=== PATIENT | male | born 1970 | race Caucasian/White ===

== ENCOUNTER 2017-02-03 12:47 | Emergency (ER) | payer BC, OTHER ==
[2017-02-03] MEDS ORDERED: SODIUM CHLORIDE 0.9% 1,000 ML IV STA (12:50)
[2017-02-03] MEDS ORDERED: ceFAZolin 1,000 MG in DEXTROSE/WATER 1 50ML.BAG IVPB STA (12:52)
[2017-02-03 12:59] VITALS: PULSE 71
[2017-02-03] MEDS: fentaNYL (PF) 50 MCG/ML 2 ML AMP IVP STA ×4 (13:14→14:24)
[2017-02-03 13:18] LABS: Basophils % (A) 0 %; CH 31.8; CHCM 34.5; Eosinophils # (A) 0.1 k/uL (0-0.7); Eosinophils % (A) 0 %; HCT 32.3 % (39.0-53.0); HDW 2.43; HGB 11.6 gm/dL (13.0-17.5); Luc # (Auto) 0.15; Luc % (Auto) 1; Lymphocytes # (A) 1.6 k/uL (1.0-4.8); Lymphocytes % (A) 11 %; MCH 33.1 pg (25.0-35.0); MCHC 35.9 g/dL (31.0-37.0); MCV 92.4 fL (80.0-100.0); Mean Platelet Volume 7.9; Monocytes # (A) 0.5 k/uL (0-1.0); Monocytes % (A) 4 %; Neutrophils # (A) 11.9 k/uL (1.3-7.7); Neutrophils % (A) 83 %; RDW 12.5 % (11.5-15.5); WBC 14.3 k/uL (3.8-10.6); WBC (Perox) 14.91
[2017-02-03 13:24] LABS: VBG PH 7.39 (7.31-7.41)
[2017-02-03 13:26] LABS: INR 1.2 (<1.2)
[2017-02-03 13:27] LABS: Prothrombin Time 11.8 sec (9.0-12.0)
--- NOTE | 2017-02-03 13:33 | XR ---
EXAMINATION TYPE: XR chest 1V portable DATE OF EXAM: 02/03/2017 COMPARISON: NONE HISTORY: Trauma TECHNIQUE: Single frontal view of the chest is obtained. FINDINGS: There is no focal air space opacity, pleural effusion, or pneumothorax seen. The cardiac silhouette size is within normal limits. The osseous structures are intact. IMPRESSION: No acute cardiopulmonary process.
--- NOTE | 2017-02-03 13:34 | XR ---
EXAMINATION TYPE: XR hand complete RT DATE OF EXAM: 02/03/2017 CLINICAL HISTORY: Injury with pain. TECHNIQUE: Frontal, lateral and oblique images of the right hand are obtained. COMPARISON: None. FINDINGS: There is no acute fracture/dislocation evident in the right hand. The joint spaces in the right hand appear within normal limits. There is soft tissue laceration injury near the distal radial aspect of the distal first metacarpal in the thumb. IMPRESSION: There is no acute fracture or dislocation in the right hand. Soft tissue laceration inju ry noted.
--- NOTE | 2017-02-03 13:34 | XR ---
EXAMINATION TYPE: XR pelvis AP view DATE OF EXAM: 02/03/2017 CLINICAL HISTORY: Trauma and pain. TECHNIQUE: A single AP view of the pelvis is obtained. COMPARISON: None. FINDINGS: There is no acute fracture/dislocation evident in the pelvis given the limitation of left hip and pelvis internal rotation. The hip and sacroiliac joints appear symmetric and unremarkable. The overlying soft tissue appears unremarkable. Degenerative changes are appreciated of the lumbosacr al junction. IMPRESSION: Left hemipelvic rotation with no discrete acute fracture or dislocation in the pelvis.
--- NOTE | 2017-02-03 13:35 | XR ---
EXAMINATION TYPE: XR femur bilateral DATE OF EXAM: 02/03/2017 CLINICAL HISTORY: Trauma and hip pain. TECHNIQUE: Two views of the bilateral femurs are obtained. COMPARISON: None FINDINGS: There is no acute fracture or dislocation seen in the lateral femurs. The right and left hip and knee joints appear within normal limits. The overlying soft tissue appears unremarkable. IMPRESSION: There is no acute fracture or dislocation in either femur.
[2017-02-03 13:42] LABS: Partial Thromboplastin Time 18.7 sec (22.0-30.0)
--- NOTE | 2017-02-03 13:44 | XR ---
EXAMINATION TYPE: XR foot limited bilateral DATE OF EXAM: 02/03/2017 CLINICAL HISTORY: Injury today with pain TECHNIQUE: Frontal and lateral images of the bilateral feet are obtained. COMPARISON: None FINDINGS: Flexion in the toes makes evaluation at this level suboptimal. There is no additional acute fracture/dislocation evident in either foot. The joint spaces in the bilateral feet appear within n ormal limits. The overlying soft tissue appears unremarkable bilaterally. There is partial visualization of fracture in the right ankle at level of medial malleolus with morti se disruption, see same day bilateral tibia fibula report. IMPRESSION: There is no additional acute fracture or dislocation in either foot.
[2017-02-03 13:46] LABS: ALT 28 U/L (21-72); AST 34 U/L (17-59); Alcohol <10 mg/dL; Alkaline Phosphatase 42 U/L (38-126); Amylase 34 U/L (30-110); Anion Gap 10 mmol/L; Blood Urea Nitrogen 13 mg/dL (9-20); Calcium 7.7 mg/dL (8.4-10.2); Carbon Dioxide 18 mmol/L (22-30); Chloride 106 mmol/L (98-107); Creatine Kinase 525 U/L (55-170); Glucose 126 mg/dL (74-99); Non-African American GFR(MDRD) >60 (>60 ml/min/1.73 sqM); Potassium 3.7 mmol/L (3.5-5.1); Sodium 134 mmol/L (137-145); Total Bilirubin 0.8 mg/dL (0.2-1.3); Total Protein 5.2 g/dL (6.3-8.2)
--- NOTE | 2017-02-03 13:46 | XR ---
EXAMINATION TYPE: XR tibia fibula bilateral DATE OF EXAM: 02/03/2017 CLINICAL HISTORY: Tree fell on the patient with open tibia fracture and obvious deformity of the lowe r extremities TECHNIQUE: Two views of the right leg are obtained. COMPARISON: None. FINDINGS: There is a comminuted and impacted extensive fracture of the proximal tibia involving the m etaphysis and proximal diaphysis with extension superiorly into the joint space. There is approximate ly 1 cm lateral displacement of the distal fracture fragment of the tibia. Overlying soft tissue swel ling, subcutaneous emphysema, and medial laceration are noted. There is a primarily transversely oriented fracture of the distal fibular diaphysis. With the distal fracture fragment displaced medially approximately 6 mm. Additional comminuted fracture is seen of th e fibular head with primarily obliquely oriented fracture line and displacement at least 1.8 cm media lly of the distal fracture fragment. Additionally fracture seen of the distal lateral femoral condyle with extension into the joint space. Medial malleolus fracture is also noted a partially visualized. IMPRESSION: 1. Intra-articular fractures of the lateral distal right femoral condyle and proximal tibia with exte nsive comminution. 2. Comminuted fibular head fracture and distal diaphyseal displaced fibular fracture. 3. Partial visualization of a medial malleolar fracture.
--- NOTE | 2017-02-03 13:50 | ED ---
Trauma HPI - General Chief Complaint: Trauma Stated Complaint: Trauma Time Seen by Provider: 02/03/17 12:47 Source: patient, EMS, RN notes reviewed Mode of arrival: EMS Limitations: no limitations - History of Present Illness Initial Comments: This is a 46-year-old male with a necessity benign history other than a previous total operation who was cutting a tree down and apparently kicked back and hit him in the lower extremities. There is a somewhat prolonged extrication as he was apparently mild deep into the pierce where this occurred. He was brought in by EMS per paramedics he did have evidence of an open fracture to his lower leg on the left and deformity to the right leg also. He also had a laceration of the right hand. Other than that no trauma above the pelvis. He had no loss of consciousness no head neck or back pain. There is no reports of neurovascular deficit. Patient was brought in on a long board in position of comfort. He was given IV fentanyl and route. Patient does state his last tetanus shot was about 2 years ago. He is not ALLERGIC to any medication. He has no other noted medical problems. He does state the pain is severe he did get a total of 200 mg of fentanyl by EMS personnel. MD Complaint: injury - Related Data Home Medications Medication Instructions Recorded Confirmed No Known Home Medications [No 02/03/17 02/03/17 Known Home Medications] Allergies Allergy/AdvReac Type Severity Reaction Status Date / Time No Known Allergies Allergy Verified 02/03/17 13:40 Review of Systems ROS Statement: Those systems with pertinent positive or pertinent negative responses have been documented in the HPI. ROS Other: All systems not noted in ROS Statement are negative. Past Medical History Past Medical History: No Reported History History of Any Multi-Drug Resistant Organisms: None Reported Additional Past Surgical History / Comment(s): toe Past Psychological History: No Psychological Hx Reported Smoking Status: Never smoker Past Alcohol Use History: Occasional Past Drug Use History: None Reported General Exam - General Exam Comments Initial Comments: This is a well-developed well-nourished awake alert oriented 3 male he has [place] Coma Scale of 15 Limitations: no limitations General appearance: alert, anxious, in distress Head exam: Present: atraumatic, normocephalic, normal inspection Eye exam: Present: normal appearance, PERRL, EOMI. Absent: scleral icterus, conjunctival injection, periorbital swelling ENT exam: Present: normal exam, mucous membranes moist Neck exam: Present: normal inspection, full ROM, other (No cervical collar indicated or in place.). Absent: tenderness, meningismus, lymphadenopathy Respiratory exam: Present: normal lung sounds bilaterally. Absent: respiratory distress, wheezes, rales, rhonchi, stridor Cardiovascular Exam: Present: regular rate, normal rhythm, normal heart sounds. Absent: systolic murmur, diastolic murmur, rubs, gallop, clicks GI/Abdominal exam: Present: soft, normal bowel sounds. Absent: distended, tenderness, guarding, rebound, rigid Rectal exam: Present: normal inspection exam: Present: normal inspection. Absent: testicular tenderness, scrotal swelling Extremities exam: Present: tenderness, normal capillary refill, other (There is no laceration to the right thenar eminence approximate 7.5 cm no active bleeding no functional deficit of the right thumb at this time. Patient is right-hand dominant. There is evidence of contusions to the anterior lateral right thigh evidence of deformity to the proximal half the tib-fib region as well as edema and tenderness to the the lateral and medial aspects of the right ankle. Additionally there is evidence of deformity to the left tib-fib with evidence of an open wound approximately 5 cm long with protruding muscle hematoma. No active bleeding.) Neurological exam: Present: alert, oriented X3, CN II-XII intact Psychiatric exam: Present: normal affect, normal mood Course Vital Signs 02/03/17 12:52 Temperature 97.5 F L Pulse Rate 71 Respiratory 20 Rate Blood Pressure 134/72 O2 Sat by Pulse 99 Oximetry - Reevaluation(s) Reevaluation #1: 02/03/17 13:50 Recheck of neurovascular exam reveals no deficits patient does have good pulses bilaterally. Good sensation bilaterally with movement of the toes. Reevaluation #2: 02/03/17 13:51 Patient had no preference to transfer I did discuss the case initially with Dr. Diaz who did recommend transfer to a higher level care for or so trauma due to severity of the injuries. [facility] the patient [facility] after discussion about the case. Procedures - Procedures Initial comment: The patient did require stabilization of the fracture. 5 x 30 posterior long leg splint are placed by me with assistance from staff. There was good neurovascular exam after the procedure. Wet-to-dry dressings were placed on the open wound prior. Medical Decision Making - Medical Decision Making I again did discuss the findings with the patient patient will be transferred to [facility] for higher level of orthopedic care. A previously discuss case with Dr. Leonardo as well as Dr. Diaz. I did discuss the case initially with the ER physician at [facility] who did refer me to Dr. Lopez the auricle trauma surgeon. - Lab Data Result diagrams: 02/03/17 12:50 02/03/17 13:30 Lab Results 02/03/17 02/03/17 02/03/17 Range/Units 12:50 12:50 12:50 WBC 14.3 H (3.8-10.6) k/uL RBC 3.50 L (4.30-5.90) m/uL Hgb 11.6 L (13.0-17.5) gm/dL Hct 32.3 L (39.0-53.0) % MCV 92.4 (80.0-100.0) fL MCH 33.1 (25.0-35.0) pg MCHC 35.9 (31.0-37.0) g/dL RDW 12.5 (11.5-15.5) % Plt Count 260 (150-450) k/uL Neutrophils % 83 % Lymphocytes % 11 % Monocytes % 4 % Eosinophils % 0 % Basophils % 0 % Neutrophils # 11.9 H (1.3-7.7) k/uL Lymphocytes # 1.6 (1.0-4.8) k/uL Monocytes # 0.5 (0-1.0) k/uL Eosinophils # 0.1 (0-0.7) k/uL Basophils # 0.0 (0-0.2) k/uL PT 11.8 (9.0-12.0) sec INR 1.2 H (<1.2) APTT 18.7 L (22.0-30.0) sec VBG pH (7.31-7.41) VBG pCO2 (37-51) mmHg VBG HCO3 (24-28) mmol/L Sodium (137-145) mmol/L Potassium (3.5-5.1) mmol/L Chloride (98-107) mmol/L Carbon Dioxide (22-30) mmol/L Anion Gap mmol/L BUN (9-20) mg/dL Creatinine (0.66-1.25) mg/dL Est GFR (MDRD) Af Amer (>60 ml/min/1.73 sqM) Est GFR (MDRD) Non-Af (>60 ml/min/1.73 sqM) Glucose (74-99) mg/dL Plasma Lactic Acid Dylon 2.9 H* (0.7-2.0) mmol/L Calcium (8.4-10.2) mg/dL Total Bilirubin (0.2-1.3) mg/dL AST (17-59) U/L ALT (21-72) U/L Alkaline Phosphatase (38-126) U/L Total Creatine Kinase (55-170) U/L Total Protein (6.3-8.2) g/dL Albumin (3.5-5.0) g/dL Amylase (30-110) U/L Lipase (23-300) U/L Serum Alcohol mg/dL 02/03/17 02/03/17 02/03/17 Range/Units 12:50 13:30 13:30 WBC (3.8-10.6) k/uL RBC (4.30-5.90) m/uL Hgb (13.0-17.5) gm/dL Hct (39.0-53.0) % MCV (80.0-100.0) fL MCH (25.0-35.0) pg MCHC (31.0-37.0) g/dL RDW (11.5-15.5) % Plt Count (150-450) k/uL Neutrophils % % Lymphocytes % % Monocytes % % Eosinophils % % Basophils % % Neutrophils # (1.3-7.7) k/uL Lymphocytes # (1.0-4.8) k/uL Monocytes # (0-1.0) k/uL Eosinophils # (0-0.7) k/uL Basophils # (0-0.2) k/uL PT (9.0-12.0) sec INR (<1.2) APTT (22.0-30.0) sec VBG pH 7.39 (7.31-7.41) VBG pCO2 32 L (37-51) mmHg VBG HCO3 19 L (24-28) mmol/L Sodium 134 L (137-145) mmol/L Potassium 3.7 (3.5-5.1) mmol/L Chloride 106 (98-107) mmol/L Carbon Dioxide 18 L (22-30) mmol/L Anion Gap 10 mmol/L BUN 13 (9-20) mg/dL Creatinine 0.74 (0.66-1.25) mg/dL Est GFR (MDRD) Af Amer >60 (>60 ml/min/1.73 sqM) Est GFR (MDRD) Non-Af >60 (>60 ml/min/1.73 sqM) Glucose 126 H (74-99) mg/dL Plasma Lactic Acid Dylon (0.7-2.0) mmol/L Calcium 7.7 L (8.4-10.2) mg/dL Total Bilirubin 0.8 (0.2-1.3) mg/dL AST 34 (17-59) U/L ALT 28 (21-72) U/L Alkaline Phosphatase 42 (38-126) U/L Total Creatine Kinase 525 H (55-170) U/L Total Protein 5.2 L (6.3-8.2) g/dL Albumin 3.2 L (3.5-5.0) g/dL Amylase 34 (30-110) U/L Lipase 35 (23-300) U/L Serum Alcohol <10 mg/dL - EKG Data -: EKG Interpreted by Me EKG shows normal: sinus rhythm (EKG shows normal sinus rhythm a 67 appear of 01 24 QRS duration 84 daily since QTC of 390/412 normal. EKG.) - Radiology Data Radiology results: report reviewed (I did review the imaging and reports are all pending. The chest and pelvis x-rays are unremarkable no evidence of a fracture to the right hand comminuted fractures to the bilateral tibia with evidence of an open fracture to the left tibia. Fibula fractures are also noted. X-ray of the right foot demonstrates no definite fracture at this time.) , image reviewed Critical Care Time Critical Care Time: Yes Critical Care Time: 49 minutes of critical care time which includes initial monitoring the EMS run and discussed with paramedics history physical labs x-rays on the patient multiple reevaluation of the patient to response to therapy. This does not include the time and put the splint on. Discussion with multiple physicians and documentation of the above as well as discussion with the transporting EMS crew. Disposition Clinical Impression: Fracture of right tibia and fibula, Fracture of left tibia and fibula, Laceration of right hand Disposition: OTHER INSTITUTION NOT DEFINED Condition: Serious Referrals: Nonstaff,Physician [Primary Care Provider] - 1-2 days - Out of Hospital Transfer - Req. Specs Out of Hospital Transfer - Requested Specifics: Other Emergency Center
[2017-02-03 13:58] LABS: Troponin I <0.012 ng/mL (0.000-0.034)
[2017-02-03 14:05] LABS: Creatine Kinase MB 13.2 ng/mL (0.0-2.4)
[2017-02-03] MEDS ORDERED: SODIUM CHLORIDE 0.9% 500 ML IV STA (14:20)
[2017-02-03 14:49] VITALS: BP 108/63; RESP 22; TEMP 97.9
[2017-02-05 05:12] LABS: Glucose,Whole Blood 148 mg/dL (75-99)
--- NOTE | 2017-02-11 09:19 | CDI ---
Documentation Clarification OP Dear Dr. Dae Mcneal Please do addendum to ED report for missing splint specific site(RT/LT) Thank you, Nevin Siddiqui Pressure Washer If you have any questions, please contact Art Coordinator at [phone] [facility]
== END 2017-02-03 14:38 | disposition other institution (70) ==
LOC: EC 12:47
DX: S82.401A Unspecified fracture of shaft of right fibula, initial encounter for closed fracture (principal); S82.402A Unspecified fracture of shaft of left fibula, initial encounter for closed fracture; S82.251B Displaced comminuted fracture of shaft of right tibia, initial encounter for open fracture type I or II; S82.252B Displaced comminuted fracture of shaft of left tibia, initial encounter for open fracture type I or II; S61.411A Laceration without foreign body of right hand, initial encounter; S70.11XA Contusion of right thigh, initial encounter; R40.2412 Glasgow coma scale score 13-15, at arrival to emergency department; W22.8XXA Striking against or struck by other objects, initial encounter; Y93.H2 Activity, gardening and landscaping
CPT/HCPCS: 99291; 29505; 96365; 96375; 96361; 36415; 86900; 86901; 80053; 82150; 82550; 82553; 82803; 83605; 83690; 84484; 85025; 85610; 85730; 86850; 80320; 71010; 73590; 73620; 72170; 73552; 73130; J3010; J0690; 93005